=== PATIENT | male | born 1985 | race Caucasian/White ===

== ENCOUNTER 2020-04-03 21:28 | Emergency (ER) | payer OTHER ==
[~2020-04-03] VITALS: Ht 180.3 cm; Wt 102.1 kg
[~2020-04-03 21:28] MED LIST: PERCOCET 5-3251 EACH PO
[2020-04-03 23:00] VITALS: BP 130/70
== END 2020-04-03 23:00 | disposition still patient (30) ==
LOC: M.ERS 21:28
DX: S61.412A Laceration without foreign body of left hand, initial encounter (principal); Z88.7 Allergy status to serum and vaccine; W25.XXXA Contact with sharp glass, initial encounter; Y93.89 Activity, other specified; Y92.89 Other specified places as the place of occurrence of the external cause; Y99.8 Other external cause status